=== PATIENT | female | born 1995 | race Caucasian/White ===

== ENCOUNTER → 2019-07-04 15:39 | Outpatient (CLI) | payer OTHER, SELFPAY ==
[2019-07-04 16:23] LABS: Add Manual Diff / Slide Review NO; Basophils Absolute Auto 0 /uL (0-100); Basophils Percent Auto 0.2 % (0-2); Eosinophils Absolute Auto 400 /uL (0-450); Eosinophils Percent Auto 3.9 % (2-4); Hematocrit 42.2 % (36-46); Hemoglobin 14.3 g/dL (12.0-16.0); Lymphocytes Absolute Auto 2000 /uL (1100-4500); Mean Corpuscular HGB Conc 33.9 % (30-36); Mean Corpuscular Hemoglobin 31.1 PG (26-34); Mean Corpuscular Volume 91.7 fL (80-100); Monocytes Absolute Auto 400 /uL (0-900); Monocytes Percent Auto 4.2 % (3-14); Neutrophils Absolute Auto 6600 /uL (1500-7000); Neutrophils Percent Auto 70.7 % (50-75); Platelet Count 215 X10^3/uL (150-400); Red Cell Distribution Width 12.6 % (11.6-14.8); White Blood Cell Count 9.4 X10^3/uL (4.5-11.0)
[2019-07-04 17:49] LABS: Alanine Aminotransferase 20 IU/L (<35); Albumin 4.5 g/dL (3.5-5.0); Albumin Globulin Ratio 1.5 (1.0-2.8); Alkaline Phosphatase 67 U/L (38-126); Aspartate Aminotransferase 25 IU/L (14-36); Bilirubin Total 0.6 mg/dL (0.2-1.3); Blood Urea Nitrogen 11 mg/dL (7-17); Calcium 9.9 mg/dL (8.4-10.2); Carbon Dioxide 24 mmol/L (22-32); Chloride 104 mmol/L (98-107); Estimated Glomerular Filt Rate > 60.0 mL/min (>60); Glucose 74 mg/dL (70-100); HEMOLYSIS 16 (0-50); Potassium 4.2 mmol/L (3.4-5.1); Sodium 138 mmol/L (137-145); Total Protein 7.5 g/dL (6.3-8.2)
[2019-07-04 18:07] LABS: Free T3, Triiodothyronine Free 3.62 pg/mL (2.77-5.27); Free T4, Direct Thyroxine 0.96 ng/dL (0.78-2.19)
[2019-07-04 18:21] LABS: Thyroid Stimulating Hormone 2.22 uIU/mL (0.47-4.68)
== END ==
PROVIDERS: Visit Provider Nurse Practitioner
DX: Z00.00 Encounter for general adult medical examination without abnormal findings (principal); F32.9 Major depressive disorder, single episode, unspecified; F41.9 Anxiety disorder, unspecified; R68.89 Other general symptoms and signs
CPT/HCPCS: 36415; 80053; 84439; 84443; 84481; 85025

== ENCOUNTER → 2021-09-19 11:22 | Outpatient (CLI) | payer OTHER, SELFPAY ==
[2021-09-19 12:09] LABS: Add Manual Diff / Slide Review NO; Basophils Absolute Auto 0 /uL (0-100); Basophils Percent Auto 0.7 % (0-2); Eosinophils Absolute Auto 200 /uL (0-450); Eosinophils Percent Auto 3.5 % (2-4); Hematocrit 37.5 % (36-46); Hemoglobin 12.6 g/dL (12.0-16.0); Lymphocytes Absolute Auto 1900 /uL (1100-4500); Lymphocytes Percent Auto 34.7 % (25-40); Mean Corpuscular HGB Conc 33.5 % (30-36); Mean Corpuscular Hemoglobin 28.9 PG (26-34); Mean Corpuscular Volume 86.5 fL (80-100); Monocytes Absolute Auto 400 /uL (0-900); Monocytes Percent Auto 7.3 % (3-14); Neutrophils Absolute Auto 3000 /uL (1500-7000); Neutrophils Percent Auto 53.8 % (50-75); Platelet Count 248 X10^3/uL (150-400); Red Blood Cell Count 4.34 X10^6/uL (4.0-5.2); Red Cell Distribution Width 13.5 % (11.6-14.8); White Blood Cell Count 5.5 X10^3/uL (4.5-11.0)
[2021-09-19 12:29] LABS: Alanine Aminotransferase 10 IU/L (<35); Albumin 4.2 g/dL (3.5-5.0); Albumin Globulin Ratio 1.3 (1.0-2.8); Alkaline Phosphatase 81 U/L (38-126); Aspartate Aminotransferase 20 IU/L (14-36); BUN Creatinine Ratio 16.7 (6-22); Bilirubin Total 0.4 mg/dL (0.2-1.3); Blood Urea Nitrogen 8 mg/dL (7-17); Calcium 9.8 mg/dL (8.4-10.2); Carbon Dioxide 24 mmol/L (22-32); Chloride 106 mmol/L (98-107); Estimated Glomerular Filt Rate > 60.0 mL/min (>60); Globulin 3.2 g/dL (1.7-4.1); Glucose 91 mg/dL (70-100); HEMOLYSIS < 15 (0-50); Potassium 3.9 mmol/L (3.4-5.1); Sodium 140 mmol/L (137-145); Total Protein 7.4 g/dL (6.3-8.2)
[2021-09-19 12:48] LABS: Free T3, Triiodothyronine Free 3.48 pg/mL (2.77-5.27)
[2021-09-19 13:01] LABS: Thyroid Stimulating Hormone 1.18 uIU/mL (0.47-4.68)
== END ==
PROVIDERS: PCP Nurse Practitioner; Referring Provider Nurse Practitioner; Visit Provider Nurse Practitioner
DX: Z00.00 Encounter for general adult medical examination without abnormal findings (principal)
CPT/HCPCS: 36415; 80053; 84439; 84443; 84481; 85025

== ENCOUNTER 2022-12-25 08:57 | Day surgery (SDC) | payer OTHER, SELFPAY ==
[2022-12-20 08:33] VITALS: BMI 33.5
[2022-12-25] VITALS (8 sets, daily range): BP systolic 98–130; BP diastolic 54–78; PULSE 88–109; RESP 12–24; TEMP 36.6–37; O2SAT 96–100; BMI 34.9
--- NOTE | 2022-12-25 | PATH_ITS ---
[facility] Accession Number: [id number] No. of containers..01 Tissue . 01 Material submitted: . fallopian tube - BILATERAL FALLOPIAN TUBES . 01 Diagnosis: A. Bilateral Fallopian Tubes, Bilateral Salpingectomy: Cross-sections of bilateral fallopian tubes with features of hydrosalpinx and focal benign paratubal cysts. Negative for dysplasia and malignancy. MRV 12/28/2022 1804 Local . 01 Electronically signed: . Stacey Guerrier MD, Pathologist NPI- [id number] . 01 Gross description: . The specimen is received in formalin labeled with the patient's name, , and bilateral fallopian tubes, and consists of two unoriented fimbriated fallopian tubes measuring 6.7 x 0.7 cm and 6.0 x 0.8 cm, respectively. The longer fallopian tube has congested smooth serosa with a pedunculated cystic structure measuring 0.3 cm in greatest dimension. Sectioning reveals an unremarkable stellate lumen. The shorter fallopian has congested smooth serosa with no cystic structures identified, and sectioning reveals an unremarkable stellate lumen. Equip Tech sections to include one-half of the bisected fimbriae and cross-sections are submitted as follows: A1: Longer fallopian tube. A2: [place]om fallopian tube. ([id number]) /MRV 12/27/2022 1552 Local . 01 Pathologist provided ICD-10: Z30.2 . 01 CPT . 882002 Specimen Comment: A courtesy copy of this report has been sent to [phone] Performed at: 01 [facility] [address] [place] [address] [address], [place], [place] [id number] MD Evangelist Meneses MD Phone: [phone]
[2022-12-25] MEDS: ACETAMINOPHEN 325 MG TABLET 975 MG PO (10:05)
[2022-12-25] MEDS: SCOPOLAMINE 1 PATCH TOP (10:05)
[2022-12-25] MEDS: LACTATED RINGERS 1,000 ML 42 ML IV (10:07)
[2022-12-25] MEDS: ONDANSETRON 4 MG/2 ML INJ IV ×2 (10:25→13:03)
--- NOTE | 2022-12-25 10:29 | SUR.PREOP ---
Patient reported worsening nausea, with mild dry heaves. MARKUS Gar notified, zofrshira ordered and given. Queaze provided.
--- NOTE | 2022-12-25 11:10 | PM.GYNHP.1 ---
History of Present Illness History of Present Illness Reason for admission: other (Sterilization) Narrative: Terri Lovell is a 27 year old female 0 who desires permanent sterilization [facility] Medical History Allergies Anxiety (~2012) Autism Depression (~2012) Dermatitis, dyshidrotic Eczema (~1997) Generalized anxiety disorder Heavy menstrual period Panic disorder Suicidal ideations Surgical History Anesthesia History of dental surgery Bittinger teeth removed Family History Father Factor V Leiden Mental health problem Mother Diabetes mellitus PCOS (polycystic ovarian syndrome) Grandfather Hypertension Grandmother Cancer History of heart disease Hypertension Grandmother Cancer Social History household members: family Smoking Status: Never smoker alcohol intake: never substance use type: marijuana Meds Home Medications and Allergies Home Medications Medication Instructions Recorded Confirmed Type copper 380 square mm intrauterine intrauterine 06/06/22 06/06/22 History device (ParaGard T 380A) bupropion HCl 150 mg 24 hr tablet, 150 mg PO QAM #90 tabs 10/10/22 12/25/22 Rx extended release (Wellbutrin XL) venlafaxine 75 mg capsule,extended 225 mg PO BEDTIME 12/25/22 12/25/22 History release 24 hr Allergies Allergy/AdvReac Type Severity Reaction Status Date / Time desvenlafaxine [From Pristiq] AdvReac Severe Suicidal Verified 06/06/22 09:23 thoughts, aggression hydrocodone AdvReac Severe Nausea Verified 12/25/22 09:45 mirtazapine [From Remeron] AdvReac Severe Paranoia, Verified 06/06/22 09:23 delusions duloxetine AdvReac Intermediate Aggressive Verified 06/06/22 09:23 behavior, anger Exam Vital Signs (past 8 hours): - 12/25/22 09:53 Temperature 97.9 F Pulse Rate 106 H Respiratory Rate 22 Blood Pressure 130/78 Pulse Oximetry 100 Oxygen Delivery Method Room Air Oxygen Delivery Method Room Air Narrative Exam Narrative: HEENT: No thyromegaly, no anterior cervical or supraclavicular lymphadenopathy. Lungs:Clear to auscultation bilaterally, no wheezes. Cardiovascular: Regular rate and rhythm, no murmurs, rubs, or gallops. Abdomen: No scars. No hepatosplenomegaly. No masses palpable. External genitalia: Normal Vagina: Normal Cervix: IUD string visible Bimanual exam: 6 Week size uterus. Mobile. No adnexal masses or tenderness. Extremities: No edema Assessment & Plan Assessment & Plan narrative: Assessment: 27-year-old 0 who desires permanent sterilization ParaGard IUD in place Plan: Laparoscopic removal of both tubes. Removal of ParaGard IUD. The risks, benefits, and alternatives to the procedure were explained to the patient. The risks including bleeding, infection, injury to the bowel, bladder, or ureters. She understands these risks and agrees to proceed. A full par Q was held and consent form was signed. Time Spent With Patient Time with patient: less than 30 minutes
--- NOTE | 2022-12-25 11:12 | PM.PREOP ---
Pre-operative Note COVID-19 Criteria for continued procedure: Non-surgical alternatives not available or appropriate per current SOC Interval Note History & Physical reviewed/Exam performed by Physician: Yes Changes to H&P: No H&P completed within 30 days and has changed as indicated here:: 12/25/22
--- NOTE | 2022-12-25 11:34 | SUR.OPER ---
Lithotomy on padded OR bed, head on pillow, arms padded and tucked. Legs secured in padded yellow fins stirrups.
--- NOTE | 2022-12-25 12:07 | PM.GYNOP.1 ---
Operative Date/Time/Diagnoses Date of procedure: 12/25/22 Time of procedure: 12:07 Pre-op diagnosis: ParaGard IUD in place Desires permanent sterilization Post-op diagnosis: same Procedure & Clinicians Procedure: Procedures Operation Date: 12/25/22 11:15 Actual Procedure Side Surgeon p Laparoscopic Bilateral Salpingectomy & IUD removal (paragard) Lyndsay Landry MD Indications: ParaGard IUD in place Desires permanent sterilization Surgeon: Lyndsay Landry Anesthesia Type: General and Local Operative Notes Findings: 7 week size anteverted uterus Normal tubes and ovaries Normal liver and gallbladder Appendix not visualized ParaGard IUD strings visible in the vagina Closure Type: primary Specimen(s): left tube and right tube Estimated blood loss (mL): 5 Blood products transfused: none Procedure in detail: After informed consent was obtained, the patient was taken to the operating room where she was placed in the dorsal supine position. After adequate general endotracheal anesthesia was achieved, she was placed in the dorsal lithotomy position, and prepped and draped in the usual sterile fashion. A time-out was performed. A bivalve speculum was placed into the vagina and the anterior lip of the cervix was grasped with a single-tooth tenaculum. The ParaGard IUD strings were visible and these were grasped with a ring forceps and the IUD was removed without difficulty. The cervical os was sequentially dilated until the Zumi uterine manipulator could pass easily into the endometrial cavity. The single-tooth tenaculum was removed from the anterior lip of the cervix. The bivalve speculum was removed from the vagina. Attention was then turned to the abdomen where 6 cc of 0.5% Marcaine with epinephrine were injected in the umbilical fold. A 5 mm incision was made. The Veress needle was placed into the peritoneal cavity, and its placement confirmed by aspiration and drop test. The abdominal cavity was insufflated with 3.8 L of CO2. The Veress needle was removed, and a 5 mm trocar was placed without difficulty. Two other incisions were made 4 cm lateral to the umbilicus after 6 cc of 0.5% Marcaine with epinephrine were injected. 5 mm trocars were placed under direct visualization. The right tube was grasped with an atraumatic grasper. Using the power seal, the mesosalpinx was cauterized and cut all the way down to the cornua of the uterus. The tube was amputated at the cornua. The tube was removed through the right lateral trocar under direct visualization. This was repeated on the patient's left tube. The tube was removed through the left lateral trocar under direct visualization. Hemostasis was achieved. The instruments were removed from the abdomen. The CO2 was allowed to escape. The incisions were closed with 4-0 Monocryl in a subcuticular fashion. Steri-Strips and Allevyn dressings were placed. The Zumi uterine manipulator was removed from the uterus. Sponge, lap, and instrument counts were correct x2. The patient tolerated the procedure well, and was taken to PACU in stable condition. Complications: none Post-operative Condition: stable Disposition: PACU Plan for aftercare: Home after recovery
[2022-12-25] MEDS: LORazepam 2 MG/ML INJ 0.5 MG IV (12:13)
[2022-12-25] MEDS: BUPIVACAINE 0.5% (PF) 30 ML, EPINEPHrine 0.15 MG INJ (12:20)
[2022-12-25] MEDS: LACTATED RINGERS 1,000 ML 100 ML IV (12:31)
[2022-12-25] MEDS: OXYCODONE IR 5 MG TABLET PO (12:38)
[2022-12-25] MEDS: HYDROMORPHONE 2 MG INJ IV (12:58)
--- NOTE | 2022-12-25 12:58 | SUR.PHASEI ---
Upon arrival to PACU, anxious, trying to climb oob. pulling leads off and not following directions. medicated per orders with good result. calmer, not climbing oob. MARKUS Werner updated. Oral pain medications started for cramping. to P2.
[2022-12-25] MEDS: hydrOXYzine 50 MG/ML INJ 25 MG IM (13:15)
--- NOTE | 2022-12-25 13:18 | SUR.PHASEII ---
Pt to PACU II crying in pain, stating over and over it hurts and crying. Medicated with Dilaudid, then zofran and finally vistaril. Mom at bedside. Pt now resting on right side, face still furrowed. Placed on Cont Pulse Ox HR 79 and O2 sat 100% on RA.
== END 2022-12-25 14:05 | disposition home or self-care (01) ==
PROVIDERS: PCP Nurse Practitioner; Referring Provider Obstetrics & Gynecology; Visit Provider Obstetrics & Gynecology
PROC: (CPT 58661; principal; 2022-12-25 11:15)
DX: Z30.2 Encounter for sterilization (principal); Z30.432 Encounter for removal of intrauterine contraceptive device; N70.11 Chronic salpingitis; N83.8 Other noninflammatory disorders of ovary, fallopian tube and broad ligament
CPT/HCPCS: 58661; 58301; J0171; J1100; J1170; J1885; J2060; J2250; J2405; J2704; J3010; J3410; J3490

== ENCOUNTER → 2023-10-06 08:59 | Outpatient (CLI) | payer OTHER, SELFPAY ==
[2023-10-06 10:07] LABS: Add Manual Diff / Slide Review NO; Basophils Absolute Auto 0 /uL (0-100); Basophils Percent Auto 0.6 % (0-2); Eosinophils Absolute Auto 300 /uL (0-450); Eosinophils Percent Auto 4.9 % (2-4); Hematocrit 35.7 % (36-46); Hemoglobin 11.9 g/dL (12.0-16.0); Lymphocytes Absolute Auto 1700 /uL (1100-4500); Lymphocytes Percent Auto 25.5 % (25-40); Mean Corpuscular HGB Conc 33.5 % (30-36); Mean Corpuscular Hemoglobin 27.8 PG (26-34); Mean Corpuscular Volume 83.1 fL (80-100); Monocytes Absolute Auto 500 /uL (0-900); Monocytes Percent Auto 7.6 % (3-14); Neutrophils Absolute Auto 4000 /uL (1500-7000); Neutrophils Percent Auto 61.4 % (50-75); Platelet Count 278 X10^3/uL (150-400); Red Blood Cell Count 4.29 X10^6/uL (4.0-5.2); Red Cell Distribution Width 13.9 % (11.6-14.8); White Blood Cell Count 6.5 X10^3/uL (4.5-11.0)
[2023-10-06 10:25] LABS: Alanine Aminotransferase 12 IU/L (<35); Albumin Globulin Ratio 1.4 (1.0-2.8); Alkaline Phosphatase 86 U/L (38-126); Aspartate Aminotransferase 18 IU/L (14-36); BUN Creatinine Ratio 10.2 (6-22); Bilirubin Total 0.7 mg/dL (0.2-1.3); Blood Urea Nitrogen 5 mg/dL (7-17); Calcium 9.5 mg/dL (8.4-10.2); Carbon Dioxide 25 mmol/L (22-32); Chloride 104 mmol/L (98-107); Cholesterol 147 mg/dL (140-199); Estimated Glomerular Filt Rate > 60 mL/min (>60); Globulin 2.9 g/dL (1.7-4.1); Glucose 86 mg/dL (70-100); HDL Cholesterol 52 mg/dL (40-60); HEMOLYSIS < 15 (0-50); LDL Cholesterol Calculated 84 mg/dL (<100); Sodium 140 mmol/L (137-145); Total Protein 6.9 g/dL (6.3-8.2); Triglycerides 54 mg/dL (35-150)
[2023-10-06 10:41] LABS: Free T3, Triiodothyronine Free 3.71 pg/mL (2.77-5.27); Free T4, Direct Thyroxine 1.25 ng/dL (0.78-2.19)
[2023-10-06 10:55] LABS: Thyroid Stimulating Hormone 0.295 uIU/mL (0.47-4.68)
[2023-10-06 11:34] LABS: Urine Chlamydia NOT DETECTED; Urine N gonorrhoeae NOT DETECTED
[2023-10-08 14:16] LABS: HSV 2 IGG AB < 0.91 index (0.00-0.90)
[2023-10-08 19:48] LABS: HIV 1 & 2 Ab/Ag 4th Gen Combo NEGATIVE (NEGATIVE); Hep C Virus Ab w/Reflex Quant NEGATIVE s/c (NEGATIVE); Hepatitis B Surface Antigen NEGATIVE s/c (NEGATIVE)
[2023-10-09 08:53] LABS: RPR Screen Non Reactive (Non Reactive)
== END ==
PROVIDERS: PCP Nurse Practitioner; Referring Provider Nurse Practitioner; Visit Provider Nurse Practitioner
DX: Z00.00 Encounter for general adult medical examination without abnormal findings (principal); Z11.3 Encounter for screening for infections with a predominantly sexual mode of transmission; Z11.59 Encounter for screening for other viral diseases; Z11.4 Encounter for screening for human immunodeficiency virus [HIV]
CPT/HCPCS: 36415; 80053; 80061; 84439; 84443; 84481; 85025; 86592; 86695; 86696; 86803; 87340; 87389; 87491; 87591